=== PATIENT | male | born 2000 | race Caucasian/White ===

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

== ENCOUNTER 2022-03-20 18:59 | Emergency (ER) | payer BC ==
[2022-03-20] MEDS ORDERED: KETOROLAC 15 MG/ML 1 ML VIAL IVP STA (20:17)
--- NOTE | 2022-03-20 20:17 | XR ---
EXAMINATION TYPE: XR chest 2V DATE OF EXAM: 03/20/2022 COMPARISON: 11/17/2020 HISTORY: Chest pain TECHNIQUE: 2 view FINDINGS: Heart and mediastinum are normal. Lungs are clear. Diaphragm is normal. Bony thorax is intact. IMPRESSION: Normal chest No change.
--- NOTE | 2022-03-20 20:18 | XR ---
EXAMINATION TYPE: XR abdomen 1V DATE OF EXAM: 03/20/2022 COMPARISON: NONE HISTORY: Abdominal pain TECHNIQUE: 2 views upright FINDINGS: Bowel gas pattern is normal. No sign of intestinal obstruction or pneumoperitoneum. Fecal p attern is normal. No sign of a mass. IMPRESSION: Nonacute abdomen.
--- NOTE | 2022-03-20 20:21 | ED ---
General Adult HPI - General Chief complaint: Abdominal Pain Stated complaint: chest pain Time Seen by Provider: 03/20/22 20:02 Source: patient, RN notes reviewed Mode of arrival: ambulatory Limitations: no limitations - History of Present Illness Initial comments: This is a 22-year-old male with a history of anxiety attacks and neuropathy. He presents to emergency department today stating that when he woke up this morning felt some discomfort in his xiphoid process area. Patient states when he takes a deep breath and he feels a dull pain in that area. Patient states when he presented the pain goes away. There is no shortness of breath or chest pain otherwise. No palpitations. No abdominal pain. No nausea vomiting. No change in balance urination. He has had no recent immobilization. No recent surgeries. No recent travel. Patient is a nonsmoker. Does not take any medications. Family history of hypertension in his father. Irritable bowel syndrome and his mother. Pain does not radiate. Patient also complaining of a strange feeling in the left lower leg. Patient states he had a weak feeling from his knee down. Patient states he has experienced this before with panic attacks. Patient family without difficulty. No weakness at this time. Patient states there was mild discomfort in the area. Patient has no history of blood dyscrasias or coagulopathies. No headache, no fever or chills, no changes in vision or hearing, no sore throat or difficulty with speech, no neck pain, no shortness of breath, no abdominal pain, no nausea or vomiting, no changes in urination or bowel movements, no numbness or tingling, no extremity pain, no skin rashes or lesions. Past medical, surgical, social, and family history reviewed. - Related Data Home Medications Medication Instructions Recorded Confirmed No Known Home Medications 10/10/15 11/17/20 Allergies Allergy/AdvReac Type Severity Reaction Status Date / Time amoxicillin Allergy Rash/Hives Verified 03/20/22 19:28 Review of Systems ROS Statement: Those systems with pertinent positive or pertinent negative responses have been documented in the HPI. ROS Other: All systems not noted in ROS Statement are negative. Past Medical History Past Medical History: No Reported History Additional Past Medical History / Comment(s): Neuropathy History of Any Multi-Drug Resistant Organisms: None Reported Past Surgical History: No Surgical Hx Reported Past Psychological History: Anxiety, Depression Smoking Status: Never smoker Past Alcohol Use History: None Reported Past Drug Use History: None Reported General Exam - General Exam Comments Initial Comments: Nontoxic appearing male in no significant distress. Limitations: no limitations General appearance: alert, in no apparent distress Head exam: Present: atraumatic, normocephalic, normal inspection Eye exam: Present: normal appearance, PERRL, EOMI. Absent: scleral icterus, conjunctival injection, periorbital swelling ENT exam: Present: normal exam, normal oropharynx, mucous membranes moist, normal external ear exam. Absent: mucous membranes dry Neck exam: Present: normal inspection, full ROM. Absent: tenderness, meningismus, lymphadenopathy Respiratory exam: Present: normal lung sounds bilaterally. Absent: respiratory distress, wheezes, rales, rhonchi, stridor, chest wall tenderness, accessory muscle use, decreased breath sounds, prolonged expiratory Cardiovascular Exam: Present: regular rate, normal rhythm, normal heart sounds. Absent: systolic murmur, diastolic murmur, rubs, gallop, clicks GI/Abdominal exam: Present: soft, normal bowel sounds. Absent: distended, tenderness, guarding, rebound, rigid Extremities exam: Present: normal inspection, full ROM, normal capillary refill. Absent: tenderness, pedal edema, joint swelling, calf tenderness Back exam: Present: normal inspection Neurological exam: Present: alert, oriented X3, CN II-XII intact Psychiatric exam: Present: normal affect, normal mood Skin exam: Present: warm, dry, intact, normal color. Absent: rash Course Vital Signs 03/20/22 03/20/22 19:25 20:41 Temperature 98.2 F 98.7 F Pulse Rate 84 79 Respiratory 20 16 Rate Blood Pressure 135/89 128/87 O2 Sat by Pulse 98 99 Oximetry - Reevaluation(s) Reevaluation #1: 03/20/22 22:18 Medical record is reviewed Symptoms are improved here in the emergency department Patient is informed of results and questions answered Patient in no distress EKG Findings - EKG Comments: EKG Findings:: EKG done at 2102 and variety ED attending physician reveals sinus rhythm with a rate is 63. Normal axis. Normal intervals. No acute ST or T- wave changes. Normal QRS morphology. Medical Decision Making - Medical Decision Making Patient symptomology most consistent with chest wall pain, possible pleurisy as he has no reproducible tenderness and only has pain with takes a deep breath in. This pain resolves with normal breathing or breathing out. D-dimer was negative. EKG was normal. Blood work was normal. Patient's workup was normal. I suspect patient has pleurisy. We'll treat conservatively with anti- inflammatory medication and follow-up. Patient was told to return to the ER for any signs or symptoms worsen. Told to return immediately if any other problems arise. All questions answered. Treatment plan discussed. Patient in agreement Every effort has been made to ensure accuracy of this dictation. However, due to the limitations of electronic medical records and dictation devices, errors in charting still occur. The case was discussed in detail with ED attending physician. Presentation, findings, treatment plan discussed in detail. Dental Technician Metal Dr. Chawla - Lab Data Result diagrams: 03/20/22 20:41 03/20/22 20:41 Lab Results 03/20/22 03/20/22 03/20/22 Range/Units 20:41 20:41 20:41 WBC 6.4 (3.8-10.6) k/uL RBC 5.29 (4.30-5.90) m/uL Hgb 16.9 (13.0-17.5) gm/dL Hct 47.1 (39.0-53.0) % MCV 89.1 (80.0-100.0) fL MCH 32.0 (25.0-35.0) pg MCHC 35.9 (31.0-37.0) g/dL RDW 11.9 (11.5-15.5) % Plt Count 272 (150-450) k/uL MPV 7.4 Neutrophils % 57 % Lymphocytes % 29 % Monocytes % 6 % Eosinophils % 5 % Basophils % 1 % Neutrophils # 3.6 (1.3-7.7) k/uL Lymphocytes # 1.8 (1.0-4.8) k/uL Monocytes # 0.4 (0-1.0) k/uL Eosinophils # 0.3 (0-0.7) k/uL Basophils # 0.1 (0-0.2) k/uL D-Dimer 0.21 (<0.60) mg/L FEU Sodium 139 (137-145) mmol/L Potassium 4.4 (3.5-5.1) mmol/L Chloride 106 (98-107) mmol/L Carbon Dioxide 24 (22-30) mmol/L Anion Gap 9 mmol/L BUN 13 (9-20) mg/dL Creatinine 0.71 (0.66-1.25) mg/dL Est GFR (CKD-EPI)AfAm >90 (>60 ml/min/1.73 sqM) Est GFR (CKD-EPI)NonAf >90 (>60 ml/min/1.73 sqM) Glucose 84 (74-99) mg/dL Calcium 9.3 (8.4-10.2) mg/dL Magnesium 1.8 (1.6-2.3) mg/dL Total Bilirubin 1.1 (0.2-1.3) mg/dL AST 48 (17-59) U/L ALT 40 (4-49) U/L Alkaline Phosphatase 82 (38-126) U/L Total Protein 8.0 (6.3-8.2) g/dL Albumin 4.8 (3.5-5.0) g/dL Lipase 55 (23-300) U/L - Radiology Data Radiology results: report reviewed, image reviewed Disposition Clinical Impression: Pleurisy Disposition: HOME SELF-CARE Condition: Good Instructions (If sedation given, give patient instructions): Pleurisy (ED) Additional Instructions: Follow-up with your regular physician as directed. Return to the ER immediately if any symptoms worsen, new symptoms arise, or any other problems develop. Use [id number] acetaminophen and/or ibuprofen for pain control. Is patient prescribed a controlled substance at d/c from ED?: No Referrals: Bia Jeffries III, MD [Primary Care Provider] - 03/26/22 Time of Disposition: 22:19
[2022-03-20 20:42] VITALS: RESP 16
[2022-03-20 20:55] LABS: Basophils # (A) 0.1 k/uL (0-0.2); Basophils % (A) 1 %; Eosinophils # (A) 0.3 k/uL (0-0.7); Eosinophils % (A) 5 %; HCT 47.1 % (39.0-53.0); HGB 16.9 gm/dL (13.0-17.5); Lymphocytes # (A) 1.8 k/uL (1.0-4.8); Lymphocytes % (A) 29 %; MCHC 35.9 g/dL (31.0-37.0); MCV 89.1 fL (80.0-100.0); Mean Platelet Volume 7.4; Monocytes # (A) 0.4 k/uL (0-1.0); Monocytes % (A) 6 %; Neutrophils # (A) 3.6 k/uL (1.3-7.7); Neutrophils % (A) 57 %; Platelet Count 272 k/uL (150-450); RBC 5.29 m/uL (4.30-5.90); RDW 11.9 % (11.5-15.5); WBC 6.4 k/uL (3.8-10.6)
[2022-03-20 21:32] LABS: ALT 40 U/L (4-49); AST 48 U/L (17-59); African American GFR (CKD) >90 (>60 ml/min/1.73 sqM); Albumin 4.8 g/dL (3.5-5.0); Alkaline Phosphatase 82 U/L (38-126); Anion Gap 9 mmol/L; Blood Urea Nitrogen 13 mg/dL (9-20); Calcium 9.3 mg/dL (8.4-10.2); Carbon Dioxide 24 mmol/L (22-30); Chloride 106 mmol/L (98-107); Glucose 84 mg/dL (74-99); Lipase 55 U/L (23-300); Magnesium 1.8 mg/dL (1.6-2.3); Non-African American GFR(CKD) >90 (>60 ml/min/1.73 sqM); Potassium 4.4 mmol/L (3.5-5.1); Sodium 139 mmol/L (137-145); Total Bilirubin 1.1 mg/dL (0.2-1.3)
[2022-03-20 22:42] VITALS: BP 117/84; PULSE 70; TEMP 98.8
== END 2022-03-20 22:42 | disposition home or self-care (01) ==
LOC: EC 18:59
DX: R09.1 Pleurisy (principal); Z88.0 Allergy status to penicillin
CPT/HCPCS: 36415; 93005; 85379; 80053; 83690; 83735; 85025; 71046; 74018; 99284; 96374; J1885

== ENCOUNTER 2023-12-05 12:46 | Emergency (ER) | payer OTHER ==
[2023-12-05] MEDS: IBUPROFEN 800 MG TAB PO STA (13:10)
[2023-12-05] MEDS: ACETAMINOPHEN TAB 500 MG TAB PO STA (13:11)
--- NOTE | 2023-12-05 13:30 | XR ---
EXAMINATION TYPE: XR chest 2V DATE OF EXAM: 12/05/2023 COMPARISON: 03/20/2022 HISTORY: Cough TECHNIQUE: Frontal and lateral views of the chest are obtained. FINDINGS: There is airspace infiltrate within the lingula compatible with pneumonia. No evidence for pneumothorax. No pleural effusion. The cardiac silhouette size is within normal limits. The osseous structures are grossly intact. IMPRESSION: 1. There is airspace infiltrate within the lingula compatible with pneumonia.
[2023-12-05 13:43] VITALS: RESP 18
[2023-12-05] MEDS: cefTRIAXone 1,000 MG VIAL (IM USE) IM STA (14:09)
[2023-12-05] MEDS: DEXAMETHASONE SOD PHOSPHATE 10 MG/ML 1 ML VIAL IM STA (14:09)
[2023-12-05] MEDS: BENZONATATE 100 MG CAP PO STA (14:09)
[2023-12-05] MEDS: AZITHROMYCIN 500 MG TAB PO STA (14:09)
[2023-12-05 14:21] VITALS: BP 130/80; PULSE 90; TEMP 99.3
--- NOTE | 2023-12-05 14:41 | ED ---
URI HPI - General Chief Complaint: Fever Stated Complaint: Fever Time Seen by Provider: 12/05/23 12:59 Source: patient, RN notes reviewed Mode of arrival: ambulatory Limitations: no limitations - History of Present Illness Initial Comments: This is a 23-year-old male who presents to the emergency department for body aches, headaches, coughing, congestion, and fevers. Symptoms started 2 days ago. States that this feels like the last time he had COVID 4 years ago. Denies any sick contacts. He has not taken anything for his fever. Denies any chest pain or shortness of breath. MD Complaint: fever, cough, sore throat - Related Data Previous Rx's Medication Instructions Recorded Azithromycin [Zithromax] 250 mg PO DIRECTED 5 Days #6 tab 12/05/23 Ibuprofen [Motrin] 800 mg PO Q8H PRN #30 tab 12/05/23 guaiFENesin-Coden 100-10MG/5ML 10 ml PO Q4-6H PRN 3 Days #473 ml 12/05/23 [Robitussin AC] Allergies Allergy/AdvReac Type Severity Reaction Status Date / Time amoxicillin Allergy Rash/Hives Verified 12/05/23 12:56 Review of Systems ROS Statement: Those systems with pertinent positive or pertinent negative responses have been documented in the HPI. ROS Other: All systems not noted in ROS Statement are negative. Past Medical History Past Medical History: No Reported History Additional Past Medical History / Comment(s): Neuropathy History of Any Multi-Drug Resistant Organisms: None Reported Past Surgical History: No Surgical Hx Reported Past Psychological History: Anxiety, Depression Smoking Status: Never smoker Past Alcohol Use History: None Reported Past Drug Use History: None Reported General Exam Limitations: no limitations General appearance: alert, in no apparent distress Head exam: Present: atraumatic, normocephalic, normal inspection Respiratory exam: Present: normal lung sounds bilaterally. Absent: respiratory distress, wheezes, rales, rhonchi, stridor Cardiovascular Exam: Present: regular rate, normal rhythm, normal heart sounds. Absent: systolic murmur, diastolic murmur, rubs, gallop, clicks Neurological exam: Present: alert, oriented X3, CN II-XII intact Psychiatric exam: Present: normal affect, normal mood Skin exam: Present: warm, dry, intact, normal color. Absent: rash Course Vital Signs 12/05/23 12/05/23 12/05/23 12:54 13:41 14:20 Temperature 102.8 F H 99.3 F Pulse Rate 111 H 90 Respiratory 16 18 18 Rate Blood Pressure 110/70 130/80 O2 Sat by Pulse 97 98 Oximetry Medical Decision Making - Medical Decision Making This is a 23 year old male who presents to the emergency department for coughing, congestion, and fevers. Was pt. sent in by a medical professional or institution? @ -No Did you speak to anyone other than the patient for history? @ -No Did you review nursing and triage notes? @ -Yes, and I agree, it is accurate with regards to the patient's symptoms. Were old charts reviewed? @ -No Differential Diagnosis? @ -Differential Cough: Influenza, Covid, RSV, croup, allergic rhinitis, GERD, pneumonia, bronchitis, COPD, viral pharyngitis, streptococcal pharyngitis, this is not meant to be an all-inclusive list. EKG interpreted by me (3pts min.)? @ -Not obtained X-rays interpreted by me (1pt min.)? @ -Chest x-ray obtained. My interpretation identifies an infiltrate in the lingula. CT interpreted by me (1pt min.)? @ -Not obtained U/S interpreted by me (1pt. min.)? @ -Not obtained What testing was considered but not performed? (CT, X-rays, U/S, labs)? Why? @ -None What meds were considered but not given? Why? @ -None Did you discuss the management of the patient with other professionals? @ -No Did you reconcile home meds? @ -No Was smoking cessation discussed for >3mins.? @ -No Was critical care preformed (if so, how long)? @ -No Were there social determinants of health that impacted care today? How? (Homelessness, low income, unemployed, alcoholism, drug addiction, transportation, low edu. Level, literacy, decrease access to med. care, skilled nursing, rehab)? @ -No Was there de-escalation of care discussed even if they declined? (Discuss DNR or withdrawal of care, Hospice)? @ -No What co-morbidities impacted this encounter? (DM, HTN, Smoking, COPD, CAD, Cancer, CVA, Hep., AIDS, mental health diagnosis, sleep apnea, morbid obesity)? @ -None Was patient admitted / discharged? @ -Discharged. COVID, influenza, and RSV testing negative. Rapid strep test negative. Chest x-ray demonstrates an airspace infiltrate in the lingula compatible with pneumonia. Patient was febrile on arrival. He was given ibuprofen and Tylenol with resolution of temperature. Patient also had significant improvement in symptoms afterwards. He was given 1 g of Rocephin and 500 mg of Zithromax in the emergency department. Prescriptions for azithromycin, Robitussin, and ibuprofen provided with dosing instructions reviewed. He is advised to continue with ibuprofen and Tylenol as needed for fevers and pain relief. Patient discharged home in stable condition with strict return parameters and advised to have close follow-up with his PCP. Case discussed with ED attending Dr. Mason. Undiagnosed new problem with uncertain prognosis? @ -None Drug Therapy requiring intensive monitoring for toxicity (Heparin, Nitro, Insulin, Cardizem)? @ -None Were any procedures done? @ -None Diagnosis/symptom? @ -Pneumonia Acute, or Chronic, or Acute on Chronic? @ -Acute Uncomplicated (without systemic symptoms) or Complicated (systemic symptoms)? @ -Uncomplicated Side effects of treatment? @ -None Exacerbation, Progression, or Severe Exacerbation] @ -Not applicable Poses a threat to life or bodily function? @ -Unlikely Return precautions reviewed in depth, the patient is instructed to return to the emergency department with any new, worsening, or concerning symptoms. Patient verbalized understanding. - Lab Data Lab Results 12/05/23 12/05/23 Range/Units 13:15 13:15 Influenza Type A (PCR) Not Detected (Not Detectd) Influenza Type B (PCR) Not Detected (Not Detectd) RSV (PCR) Not Detected (Not Detectd) SARS-CoV-2 (PCR) Not Detected (Not Detectd) Group A Strep (PCR) NOT DETECTED (Not Detectd) - Radiology Data Radiology results: report reviewed, image reviewed Disposition Clinical Impression: Pneumonia Disposition: HOME SELF-CARE Instructions (If sedation given, give patient instructions): Community Acquired Pneumonia (ED) Additional Instructions: Return to the emergency department with any new, worsening, or concerning symptoms. Take the antibiotic as prescribed for 5 days. Alternate with ibuprofen and Tylenol as needed for body aches and any additional fevers. Take the cough medication every 4-6 hours as needed. Be aware that this may make you drowsy. Follow up with your primary care provider in 1-2 days. Prescriptions: Ibuprofen [Motrin] 800 mg PO Q8H PRN #30 tab PRN Reason: Fever And/ Or Pain guaiFENesin-Coden 100-10MG/5ML [Robitussin AC] 10 ml PO Q4-6H PRN 3 Days #473 ml PRN Reason: Cough Azithromycin [Zithromax] 250 mg PO DIRECTED 5 Days #6 tab Is patient prescribed a controlled substance at d/c from ED?: Yes When asked, does pt state using other controlled substances?: No If prescribed controlled substance>3 days was MAPS reviewed?: Prescribed <3 Days Referrals: Bia Jeffries III, MD [Primary Care Provider] - 1-2 days Time of Disposition: 14:41
== END 2023-12-05 14:51 | disposition home or self-care (01) ==
LOC: EC 12:46
DX: J18.9 Pneumonia, unspecified organism (principal); Z88.0 Allergy status to penicillin
CPT/HCPCS: 87651; 87636; 71046; 99283; 96372 ×2; J1100; J0696